=== PATIENT | male | born 1970 | race African-American/Black ===

== ENCOUNTER 2018-09-15 15:17 | Emergency (ER) | payer SELFPAY | END 2018-09-15 17:13 | disposition home or self-care (01) | LOC: M ED 17:13 | DX: R11.0 Nausea (principal); T78.49XA Other allergy, initial encounter; R94.31 Abnormal electrocardiogram [ECG] [EKG]; I10 Essential (primary) hypertension; Z79.899 Other long term (current) drug therapy | CPT/HCPCS: 93005 ==